=== PATIENT | male | born 1945 | race Caucasian/White ===

== ENCOUNTER 2018-07-21 09:26 | Outpatient (CLI) | payer OTHER, MEDICARE ==
[2018-07-21] MEDS ORDERED: IOHEXOL 100 ML IV ONE (09:56)
== END 2018-07-21 20:18 | disposition home or self-care (01) ==
LOC: SCT 09:26
PROVIDERS: ATTEND Family Medicine
DX: R05 Cough (principal); K76.89 Other specified diseases of liver; I77.819 Aortic ectasia, unspecified site
CPT/HCPCS: 71260; Q9967

== ENCOUNTER 2019-09-07 09:59 | Outpatient (CLI) | payer OTHER, MEDICARE | END 2019-09-07 20:44 | disposition home or self-care (01) | LOC: SCT 09:59 | DX: D71 Functional disorders of polymorphonuclear neutrophils (principal); D75.1 Secondary polycythemia; I70.0 Atherosclerosis of aorta | CPT/HCPCS: 71250-TC ==